=== PATIENT | male | born 1990 | race Two or more races ===

== ENCOUNTER 2019-10-04 11:30 | Emergency (ER) | payer SELFPAY ==
[~2019-10-04] VITALS: Ht 170.2 cm; Wt 56.7 kg
[~2019-10-04 11:30] MED LIST: Lidocaine 1% 10mg/ml/EPI 0.01mg/ml 30ml INJ ONE; Tetanus/Diptheria/Pertussis IM ONE
[2019-10-04] MEDS ORDERED: Tetanus/Diptheria/Pertussis IM ONE (11:35)
[2019-10-04] MEDS ORDERED: Lidocaine 1% 10mg/ml/EPI 0.01mg/ml 30ml INJ ONE (11:36)
[2019-10-04 11:55] VITALS: BP 124/61
--- NOTE | 2019-10-04 12:53 | Emergency Room Report ---
History of Present Illness General Chief Complaint: Laceration Source: Patient Present Illness HPI 29-year-old male presents with laceration to the left forearm on the dorsal aspect, patient was drinking last night, and he started cutting himself he denies any suicidal ideations never commit suicide in the past he does have a history of cutting no plan, patient states he realized what he did was stupid, he states the drinking may have aggravated it he has no plan to kill himself or hurt anyone, he let his parents know what happened, patient presents for evaluation and treatment Allergies: Coded Allergies: No Known Allergies (Unverified , 10/04/19) COVID-19 Screening Contact w/high risk pt: No Experienced COVID-19 symptoms?: No COVID-19 Testing performed COAL SCREENER: No Patient History Past Medical History: see triage record Reviewed Nursing Documentation: PMH: Agreed; PSxH: Agreed Nursing Documentation-PMH Past Medical History: No History, Except For Review of Systems All Other Systems: negative except mentioned in HPI Physical Exam Vital Signs Date Time Temp Pulse Resp B/P (MAP) Pulse Ox O2 Delivery O2 Flow Rate FiO2 10/04/19 11:24 99.0 98 18 130/62 (84) 97 Room Air General Appearance: well appearing, no apparent distress Head: normocephalic, atraumatic ENT: hearing grossly normal, normal voice Neck: full range of motion, supple Respiratory: no respiratory distress, speaking full sentences Musculoskeletal: other - Left arm laceration, measuring 7 cm, exposed muscle exposed tendon, radial median ulnar nerve intact, sensation grossly intact, no evidence of tendon injury, wound was explored, no foreign body, fascial layer injured however no tendon injury Neurologic: alert, normal gait Psychiatric: mood/affect normal Skin: no rash Procedures Laceration/Wound Repair Laceration/Wound Repair : Consent: Verbal Wound Location: upper extremity Wound's Depth, Shape: into muscle, linear Wound Length (cm): 7 Wound Explored: clean Irrigated w/ Saline (ccs): 1000 Betadine Prep?: Yes Anesthesia: Lidocaine w/ Epi Wound Debrided: None Wound Repaired With: sutures Suture Size/Type: 4:0, nylon Number of Sutures: 7 Layer Closure?: Yes Deep Layer Suture Size/Type: 3:0, other Number Deep Layer Sutures: 4 Sterile Dressing Applied?: Yes Splint Applied?: No Patient Tolerated: Well Complications: None Medical Decision Making Diagnostic Impression: Primary Impression: Laceration Additional Impression: Depressed Qualified Codes: F32.9 - Major depressive disorder, single episode, unspecified ER Course 29-year-old male presents with laceration, laceration was repaired and patient was neurovascularly intact no evidence of tendon injury, Patient given a Tdap given extensive wound injury, will start patient on antibiotics Patient was counseled to follow-up with psychiatry, patient currently denies any SI HI disposition home with return precautions follow-up with PCP Last Vital Signs Date Time Temp Pulse Resp B/P (MAP) Pulse Ox O2 Delivery O2 Flow Rate FiO2 10/04/19 11:55 99.0 84 17 124/61 96 Room Air Disposition: HOME, SELF-CARE Condition: Stable Scripts Cephalexin* (KEFLEX*) 500 Mg Capsule 500 MG ORAL EVERY 12 HOURS, #14 CAP 0 Refills Prov: Mir Moreno MD 10/04/19 Ibuprofen* (MOTRIN*) 600 Mg Tablet 600 MG ORAL Q8H PRN for FOR PAIN, #30 TAB 0 Refills Prov: Mir Moreno MD 10/04/19 [facility]. [facility] Patient Instructions: Depression, Adult, [id number], Laceration Care, Adult Additional Instructions: The patient was provided with discharge instructions, notified to follow-up with a primary care doctor and or specialist in the next 24-48 hours, and to return to the ED if they have worsening of their symptoms. Please note that this report is being documented using [employer] technology. This can lead to erroneous entry secondary to incorrect interpretation by the dictating instrument. SUTURE REMOVAL IN 14 DAYS OCT 3 PLEASE TAKE ANTIBIOTICS AND ALSO FOLLOW-UP WITH PCP [facility] Mir Moreno MD Oct 04, 2019 12:53
[2019-10-04] MEDS ORDERED: CEPHALEXIN500 MG ORAL (12:59)
[2019-10-04] MEDS ORDERED: IBUPROFEN600 M1 ORAL (12:59)
[2019-10-04 13:02] VITALS: BP 118/69
== END 2019-10-04 13:02 | disposition home or self-care (01) ==
LOC: EDBD 11:30 → EMR 11:45
DX: S51.812A Laceration without foreign body of left forearm, initial encounter (principal); F32.9 Major depressive disorder, single episode, unspecified; W45.8XXA Other foreign body or object entering through skin, initial encounter; Y93.89 Activity, other specified; Y92.9 Unspecified place or not applicable
CPT/HCPCS: 90471; 90715; 99283

== ENCOUNTER 2019-10-17 20:17 | Emergency (ER) | payer SELFPAY ==
[~2019-10-17] VITALS: Ht 170.2 cm; Wt 59.0 kg
[~2019-10-17 20:17] MED LIST changes: +CEPHALEXIN500 MG ORAL; +IBUPROFEN600 M1 ORAL; -Lidocaine 1% 10mg/ml/EPI 0.01mg/ml 30ml INJ ONE; -Tetanus/Diptheria/Pertussis IM ONE
[2019-10-17 20:25] VITALS: BP 136/84
--- NOTE | 2019-10-17 20:25 | NUR ---
ED Nurse Note: Pt wlaked in from home for suture removal on left arm. Wound clean, dry, and intact. Respirations even and unlabord on room air. Vitals stable as documented. A+Ox4, speaking in full sentences.
--- NOTE | 2019-10-17 20:33 | NUR ---
ED Nurse Note: sutures removed. Steri strips applied.
[2019-10-17 20:36] VITALS: BP 131/89
--- NOTE | 2019-10-17 20:36 | NUR ---
ED Nurse Note: Pt cleared by health care Provider for discharge. DC instructions were given and explained to pt and verbalized understanding of teachings. All medical deviecs such as ID band removed. Pt is AAO x4, ambulatory and left with all personal belongings.
--- NOTE | 2019-10-17 20:42 | Emergency Room Report ---
History of Present Illness General Chief Complaint: Wound Recheck/Suture Removal Source: Patient Present Illness HPI Disclaimer: Please note that this report is being documented using [employer] technology. This can lead to erroneous entry secondary to incorrect interpretation by the dictating instrument. HPI: 29-year-old male presents for suture removal. He is here for suture removal to the left upper extremity. He had sutures placed to his left upper extremity approximately 1 week ago. Area is mildly sore but no drainage no fever. No other complaints at this time. Allergies: Coded Allergies: No Known Allergies (Unverified , 10/17/19) COVID-19 Screening Contact w/high risk pt: No Experienced COVID-19 symptoms?: No COVID-19 Testing performed STAFF NURSE ICU RESOURCE TEAM: No Patient History Reviewed Nursing Documentation: PMH: Agreed; PSxH: Agreed Nursing Documentation-PM Past Medical History: No Stated History Review of Systems All Other Systems: negative except mentioned in HPI Physical Exam Vital Signs Date Time Temp Pulse Resp B/P (MAP) Pulse Ox O2 Delivery O2 Flow Rate FiO2 10/17/19 20:20 98.8 98 18 133/90 (104) 98 Room Air Sp02 EP Interpretation: reviewed, normal General Appearance: well appearing, no apparent distress Head: normocephalic, atraumatic Eyes: bilateral eye PERRL, bilateral eye EOMI ENT: hearing grossly normal, moist mucus membranes Neck: full range of motion, supple Respiratory: lungs clear, normal breath sounds, no rhonchi, no respiratory distress, no retraction, no wheezing Cardiovascular #1: normal peripheral pulses, regular rate, rhythm, no murmur Gastrointestinal: non tender, soft, non-distended, no guarding Neurologic: alert, oriented x3, no focal defects Skin: normal color, warm/dry, other - Laceration to left upper extremity stitches in place no surrounding erythema laceration nontender to palpation Procedures Additional Procedure Procedure Narrative Suture removal Verbal consent obtained site was left forearm sutures removed by me. No wound dehiscence patient tolerated procedure well without complication Medical Decision Making Diagnostic Impression: Primary Impression: Encounter for removal of sutures ER Course Patient presents for suture removal. Sutures removed by me. No signs of infection on exam. Patient nontoxic-appearing. Stable for discharge. Last Vital Signs Date Time Temp Pulse Resp B/P (MAP) Pulse Ox O2 Delivery O2 Flow Rate FiO2 9/2/20 20:25 98.8 67 18 136/84 99 Room Air Disposition: HOME, SELF-CARE Condition: Improved Patient Instructions: Wound Check Additional Instructions: Patient is instructed to follow-up with her primary care doctor, primary care clinic or [facility] in 1 to 2 days. Patient instructed to return for any worsening symptoms or concerns. Jake Wong M.D. Oct 17, 2019 20:42
== END 2019-10-17 21:00 | disposition home or self-care (01) ==
LOC: EMR 20:40
DX: Z48.02 Encounter for removal of sutures (principal)
CPT/HCPCS: 99281